=== PATIENT | male | born 1965 | race Caucasian/White ===

== ENCOUNTER 2019-05-07 08:06 | Inpatient (IN) | payer MEDICAID ==
[~2019-05-07] VITALS: Ht 177.8 cm; Wt 100.1 kg
[~2019-05-07 08:06] MED LIST: AMLO10TA4 PO; AMLO2.5T2 PO; ENAL2.5T32 PO; HYDR12.517 PO; LISI-170 PO; METO-282 PO; METO-93 PO; OMEP20CA9 PO; SIMV5TAB PO; TOPI25TA52 PO; TRAZ-137 PO
--- NOTE | 2019-05-07 08:18 | NUR ---
BIB [facility] AFTER PT WAS FOUND DOWN BY [employer] SLEEPING. +ETOH 5 HOURS AGO. PT HAD C/O CP, SOB, FEELING COLD, WEAKNESS, AND BLE PAIN DUE TO THE COLD. VS [employer] BP 170/60, 94% RA, HR 110. EKG ATTEMPTED. PT SHAKING EXCESSIVELY UNABLE TO GET PROPER EKG. PER ERP DR. YE WATSONAY TO WAIT UNTIL PT REWARMED TO PERFORM EKG. WARMING MEASURES IN PLACE. MONITORS APPLIED.
[2019-05-07] MEDS ORDERED: SODIUM CHLORIDE FLUSH 10ML SYR IVF ONE (08:30)
[2019-05-07] MEDS ORDERED: PLEASE ENTER HEIGHT AND WEIGHT MC SCH (08:30)
[2019-05-07 08:43] LABS: BASOPHILS # (AUTO) 0.01 x10^3/uL (0-0.1); BASOPHILS % (AUTO) 0 % (0-1); EOSINOPHILS # (AUTO) 0.03 x10^3/uL (0-0.4); EOSINOPHILS % (AUTO) 0 % (1-7); LYMPHOCYTES # (AUTO) 1.36 x10^3/uL (1-3.4); LYMPHOCYTES % (AUTO) 17 % (22-44); MD NO; MEAN CORPUSCULAR HEMOGLOBIN 30.9 pg (27.5-34.5); MEAN CORPUSCULAR HGB CONC 33.6 g/dL (33.2-36.2); MEAN CORPUSCULAR VOLUME 92.1 fL (81-97); MEAN PLATELET VOLUME 8.5 fL (7.4-10.4); MONOCYTES # (AUTO) 0.47 x10^3/uL (0.2-0.8); MONOCYTES % (AUTO) 6 % (2-9); NEUTROPHILS # (AUTO) 6.09 x10^3/uL (1.8-6.8); NEUTROPHILS % (AUTO) 77 % (42-75); PLATELET COUNT 156 x10^3/uL (130-400); RED CELL DISTRIBUTION WIDTH 14.5 % (9.4-14.8)
[2019-05-07 08:50] LABS: ALANINE AMINOTRANSFERASE 187 U/L (12-78); ALBUMIN 4.1 g/dL (3.4-5.0); ANION GAP 21 mmol/L (5-15); CHLORIDE 101 mmol/L (98-107); CREATININE 0.83 mg/dL (0.7-1.3)
--- NOTE | 2019-05-07 08:54 | NUR ---
REPORT GIVEN TO YONI ALVAREZ.
[2019-05-07 08:55] LABS: ALKALINE PHOSPHATASE 69 U/L (45-117); BILIRUBIN,TOTAL 0.7 mg/dL (0.2-1.0); TOTAL PROTEIN 7.9 g/dL (6.4-8.2); TROPONIN I < 0.015 ng/mL (0.000-0.045)
--- NOTE | 2019-05-07 08:55 | NUR ---
REPORT FROM GAGANDEEP
--- NOTE | 2019-05-07 09:47 | NUR ---
PT RESTING ON [employer] W WARMER. PT NO LONGER SHIVERING. ORAL TEMP 97.5. 2 L O2 APPLIED WHILE PT SLEEPING. RA 02 <90% SLEEPING
--- NOTE | 2019-05-07 10:33 | NUR ---
ETOH 0.415 BY LAB. AWARE
--- NOTE | 2019-05-07 10:34 | NUR ---
GIVEN WARM BLANKET AND BREAKFAST TRAY
--- NOTE | 2019-05-07 11:14 | NUR ---
REPORT TO [facility]
[2019-05-07 11:42] VITALS: BP 122/65
[2019-05-07] MEDS ORDERED: LORazepam 2 MG/ML, 1ML IV PRN ×3 (12:30)
[2019-05-07] MEDS: NICOTINE 14MG/24 HR PATCH.TD24 TD SCH (12:30)
[2019-05-07] MEDS ORDERED: hydrALAzine 20 MG/ML, 1ML IVPush PRN (12:30)
[2019-05-07] MEDS ORDERED: LORazepam 1MG TABLET PO PRN ×2 (12:30)
[2019-05-07] MEDS ORDERED: KETOROLAC 30 MG/1 ML IV PRN (12:30)
[2019-05-07] MEDS ORDERED: NS + 20MEQ KCL 1,000 ML IV SCH (12:37)
[2019-05-07] MEDS ORDERED: FOLIC ACID 1 MG TABLET PO ONE (12:43)
[2019-05-07] MEDS ORDERED: THIAMINE 200 MG in DEXTROSE 5% 50 ML IVPB ONE (12:44)
[2019-05-07] MEDS: ONDANSETRON 2MG/ML, 2ML IVPush PRN ×2 (12:47→21:01)
[2019-05-07] MEDS: LORazepam 2 MG/ML, 1ML IV PRN ×3 (13:07→23:04)
[2019-05-07 13:31] LABS: ACETONE, SERUM Trace (10mg/dL) mg/dL (Negative)
[2019-05-07] MEDS: ENOXAPARIN 40 MG/0.4 ML SQ SCH (13:56)
[2019-05-07] MEDS: PROMETHAZINE 25 MG/ML, 1ML IM PRN (16:06)
[2019-05-07 16:43] LABS: ACETONE, URINE Large (80mg/dL) (Negative)
[2019-05-07 16:50] LABS: AMPHETAMINE SCREEN, URINE Negative (Negative); BARBITURATE SCREEN, URINE Negative (Negative); BENZODIAZEPINE SCREEN, URINE Negative (Negative); CANNABINOID SCREEN, URINE Negative (Negative); COCAINE SCREEN, URINE Negative (Negative); METHADONE SCREEN, URINE Negative (Negative); OPIATE SCREEN, URINE Negative (Negative)
[2019-05-07] MEDS ORDERED: LACTATED RINGERS 1,000 ML IVBOLUS ONE (17:00)
[2019-05-07 17:40] VITALS: BP 123/66
[2019-05-07 18:07] VITALS: BP 122/65
[2019-05-07 19:51] VITALS: BP 126/81
[2019-05-07] MEDS: TRAZODONE 50MG TABLET PO SCH (21:01)
[2019-05-07] MEDS: LISINOPRIL 20 MG TABLET PO SCH (21:01)
[2019-05-08 02:16] VITALS: BP 115/72
[2019-05-08 05:20] VITALS: BP 126/63
[2019-05-08] MEDS: METOPROLOL SUCCINATE 50 MG TAB.ER.24H PO SCH (05:21)
[2019-05-08] MEDS: PROMETHAZINE 25 MG/ML, 1ML IM PRN (05:32)
[2019-05-08 05:38] LABS: ALBUMIN 3.1 g/dL (3.4-5.0); ANION GAP 11 mmol/L (5-15); CALCIUM 7.2 mg/dL (8.5-10.1); CHLORIDE 106 mmol/L (98-107)
[2019-05-08 05:50] LABS: ALANINE AMINOTRANSFERASE 128 U/L (12-78); ALKALINE PHOSPHATASE 49 U/L (45-117); BILIRUBIN,TOTAL 1.3 mg/dL (0.2-1.0); CREATININE 0.71 mg/dL (0.7-1.3); TOTAL PROTEIN 5.6 g/dL (6.4-8.2)
[2019-05-08 05:58] LABS: MEAN CORPUSCULAR HEMOGLOBIN 31.2 pg (27.5-34.5); MEAN CORPUSCULAR VOLUME 91.9 fL (81-97); RED BLOOD COUNT 4.06 x10^6/uL (4.38-5.82); RED CELL DISTRIBUTION WIDTH 14.4 % (9.4-14.8)
[2019-05-08 06:00] LABS: MEAN PLATELET VOLUME 9.1 fL (7.4-10.4); PLATELET COUNT 94 x10^3/uL (130-400)
[2019-05-08 06:01] LABS: BASOPHILS # (AUTO) 0.01 x10^3/uL (0-0.1); BASOPHILS % (AUTO) 0 % (0-1); EOSINOPHILS # (AUTO) 0.12 x10^3/uL (0-0.4); EOSINOPHILS % (AUTO) 2 % (1-7); LYMPHOCYTES # (AUTO) 1.36 x10^3/uL (1-3.4); LYMPHOCYTES % (AUTO) 24 % (22-44); MD SCAN; MONOCYTES # (AUTO) 0.33 x10^3/uL (0.2-0.8); MONOCYTES % (AUTO) 6 % (2-9); NEUTROPHILS # (AUTO) 3.82 x10^3/uL (1.8-6.8); NEUTROPHILS % (AUTO) 68 % (42-75)
[2019-05-08 06:47] VITALS: BP 121/67
[2019-05-08] MEDS: ONDANSETRON 2MG/ML, 2ML IVPush PRN (08:16)
[2019-05-08] MEDS: PANTOPROZOLE 40MG TABLET PO SCH (08:23)
[2019-05-08] MEDS: TOPIRAMATE 25 MG TABLET PO SCH (08:25)
[2019-05-08] MEDS: LORazepam 0.5MG TABLET PO PRN ×2 (08:25→15:25)
[2019-05-08] MEDS: LISINOPRIL 20 MG TABLET PO SCH ×2 (08:26→19:46)
[2019-05-08] MEDS ORDERED: POTASSIUM PHOSPHATE 44 MEQ in SODIUM CHLORIDE 0.9% 500 ML IV ONE (10:00)
[2019-05-08] MEDS ORDERED: MAGNESIUM SULFATE PMX 2GM/50ML 50 ML IV ONE (10:00)
[2019-05-08] MEDS: ONDANSETRON ODT 4 MG PO PRN ×2 (11:57→19:46)
[2019-05-08 12:13] VITALS: BP 134/77
[2019-05-08] MEDS ORDERED: NS + 20MEQ KCL 1,000 ML IV SCH (12:37)
[2019-05-08] MEDS: ENOXAPARIN 40 MG/0.4 ML SQ SCH (15:19)
[2019-05-08] MEDS: NICOTINE 14MG/24 HR PATCH.TD24 TD SCH (15:23)
[2019-05-08] MEDS: MULTIVITAMIN 1 TABLET PO SCH (17:22)
[2019-05-08] MEDS: FOLIC ACID 1 MG TABLET PO SCH (17:23)
[2019-05-08] MEDS: THIAMINE 100MG TABLET PO SCH (17:23)
[2019-05-08 19:43] VITALS: BP 127/73
[2019-05-08] MEDS: TRAZODONE 50MG TABLET PO SCH (19:46)
[2019-05-08] MEDS: LORazepam 2 MG/ML, 1ML IV PRN (19:56)
[2019-05-08] MEDS: D5%-0.9% NACL 1,000 ML IV SCH (19:57)
[2019-05-09 00:23] VITALS: BP 130/76
[2019-05-09] MEDS: morphine SULFATE 10 MG/ML, 1ML IVPush PRN ×2 (00:36→01:15)
[2019-05-09] MEDS: D5%-0.9% NACL 1,000 ML IV SCH (03:36)
[2019-05-09] MEDS: LORazepam 1MG TABLET PO PRN ×4 (04:05→20:07)
[2019-05-09] MEDS: PROMETHAZINE 25 MG/ML, 1ML IM PRN (04:05)
[2019-05-09 05:11] VITALS: BP 123/76
[2019-05-09] MEDS: METOPROLOL SUCCINATE 50 MG TAB.ER.24H PO SCH (05:12)
[2019-05-09 05:46] LABS: MEAN CORPUSCULAR HEMOGLOBIN 31.3 pg (27.5-34.5); MEAN CORPUSCULAR HGB CONC 33.5 g/dL (33.2-36.2); MEAN CORPUSCULAR VOLUME 93.7 fL (81-97); RED BLOOD COUNT 3.92 x10^6/uL (4.38-5.82); RED CELL DISTRIBUTION WIDTH 14.1 % (9.4-14.8)
[2019-05-09 05:47] LABS: ALANINE AMINOTRANSFERASE 117 U/L (12-78); ALBUMIN 2.8 g/dL (3.4-5.0); ANION GAP 6 mmol/L (5-15); CALCIUM 7.3 mg/dL (8.5-10.1); CHLORIDE 106 mmol/L (98-107); CREATININE 0.65 mg/dL (0.7-1.3)
[2019-05-09 05:49] LABS: ALKALINE PHOSPHATASE 52 U/L (45-117); BILIRUBIN,TOTAL 1.2 mg/dL (0.2-1.0); TOTAL PROTEIN 5.3 g/dL (6.4-8.2)
[2019-05-09 06:13] LABS: BASOPHILS # (AUTO) 0.01 x10^3/uL (0-0.1); BASOPHILS % (AUTO) 0 % (0-1); EOSINOPHILS # (AUTO) 0.23 x10^3/uL (0-0.4); EOSINOPHILS % (AUTO) 5 % (1-7); LYMPHOCYTES # (AUTO) 1.33 x10^3/uL (1-3.4); LYMPHOCYTES % (AUTO) 30 % (22-44); MD SCAN; MEAN PLATELET VOLUME 9.8 fL (7.4-10.4); MONOCYTES # (AUTO) 0.31 x10^3/uL (0.2-0.8); MONOCYTES % (AUTO) 7 % (2-9); NEUTROPHILS # (AUTO) 2.53 x10^3/uL (1.8-6.8); NEUTROPHILS % (AUTO) 57 % (42-75); PLATELET COUNT 78 x10^3/uL (130-400)
[2019-05-09 06:57] VITALS: BP 130/82
[2019-05-09] MEDS: ONDANSETRON ODT 4 MG PO PRN (08:01)
[2019-05-09] MEDS: PANTOPROZOLE 40MG TABLET PO SCH (08:01)
[2019-05-09] MEDS: MULTIVITAMIN 1 TABLET PO SCH (09:18)
[2019-05-09] MEDS: TOPIRAMATE 25 MG TABLET PO SCH (09:18)
[2019-05-09] MEDS: THIAMINE 100MG TABLET PO SCH (09:18)
[2019-05-09] MEDS: LISINOPRIL 20 MG TABLET PO SCH ×2 (09:18→20:08)
[2019-05-09] MEDS: FOLIC ACID 1 MG TABLET PO SCH (09:18)
[2019-05-09] MEDS ORDERED: POTASSIUM PHOSPHATE 44 MEQ in SODIUM CHLORIDE 0.9% 500 ML IV ONE (09:30)
[2019-05-09 12:17] VITALS: BP 133/82
[2019-05-09] MEDS: NICOTINE 14MG/24 HR PATCH.TD24 TD SCH (14:24)
[2019-05-09] MEDS: ENOXAPARIN 40 MG/0.4 ML SQ SCH (14:24)
[2019-05-09 19:28] VITALS: BP 117/78
[2019-05-09] MEDS: TRAZODONE 50MG TABLET PO SCH (20:07)
[2019-05-10 00:18] VITALS: BP 134/86
[2019-05-10] MEDS: LORazepam 1MG TABLET PO PRN ×5 (04:16→21:11)
[2019-05-10 04:36] LABS: ALANINE AMINOTRANSFERASE 124 U/L (12-78); ALBUMIN 2.7 g/dL (3.4-5.0); ANION GAP 7 mmol/L (5-15); CALCIUM 7.9 mg/dL (8.5-10.1); CHLORIDE 107 mmol/L (98-107); CREATININE 0.68 mg/dL (0.7-1.3)
[2019-05-10 04:38] LABS: ALKALINE PHOSPHATASE 57 U/L (45-117); BILIRUBIN,TOTAL 0.8 mg/dL (0.2-1.0); TOTAL PROTEIN 5.5 g/dL (6.4-8.2)
[2019-05-10 05:27] VITALS: BP 136/87
[2019-05-10] MEDS: METOPROLOL SUCCINATE 50 MG TAB.ER.24H PO SCH (05:33)
[2019-05-10 06:52] VITALS: BP 144/82
[2019-05-10] MEDS: PANTOPROZOLE 40MG TABLET PO SCH (08:31)
[2019-05-10] MEDS: TOPIRAMATE 25 MG TABLET PO SCH (08:32)
[2019-05-10] MEDS: MULTIVITAMIN 1 TABLET PO SCH (08:33)
[2019-05-10] MEDS: THIAMINE 100MG TABLET PO SCH (08:35)
[2019-05-10] MEDS: FOLIC ACID 1 MG TABLET PO SCH (08:35)
[2019-05-10] MEDS: LISINOPRIL 20 MG TABLET PO SCH ×2 (08:36→21:10)
[2019-05-10 12:21] VITALS: BP 128/77
[2019-05-10] MEDS: ENOXAPARIN 40 MG/0.4 ML SQ SCH (13:07)
[2019-05-10] MEDS: NICOTINE 14MG/24 HR PATCH.TD24 TD SCH (13:07)
[2019-05-10 20:13] VITALS: BP 119/81
[2019-05-10] MEDS: TRAZODONE 50MG TABLET PO SCH (21:10)
[2019-05-11 00:30] VITALS: BP 119/78
[2019-05-11] MEDS: LORazepam 1MG TABLET PO PRN (03:11)
[2019-05-11 06:48] VITALS: BP 117/77
[2019-05-11] MEDS: METOPROLOL SUCCINATE 50 MG TAB.ER.24H PO SCH (07:36)
[2019-05-11] MEDS: LACTOBACILLUS CHEW TABLET PO SCH ×3 (09:14→20:22)
[2019-05-11] MEDS: LISINOPRIL 20 MG TABLET PO SCH ×2 (09:14→20:22)
[2019-05-11] MEDS: FOLIC ACID 1 MG TABLET PO SCH (09:14)
[2019-05-11] MEDS: MULTIVITAMIN 1 TABLET PO SCH (09:14)
[2019-05-11] MEDS: THIAMINE 100MG TABLET PO SCH (09:14)
[2019-05-11] MEDS: TOPIRAMATE 25 MG TABLET PO SCH (09:14)
[2019-05-11 12:22] VITALS: BP 132/85
[2019-05-11] MEDS: ENOXAPARIN 40 MG/0.4 ML SQ SCH (12:47)
[2019-05-11] MEDS ORDERED: ACID1TAB7 PO (12:57)
[2019-05-11] MEDS ORDERED: THIA100T67 PO (12:57)
[2019-05-11] MEDS ORDERED: MULT1TAB60 PO (12:57)
[2019-05-11] MEDS ORDERED: POLYETHYLENE GLYCOL 17 GM PACKET PO ONE (13:30)
[2019-05-11 19:32] VITALS: BP 140/88
[2019-05-11] MEDS: TRAZODONE 50MG TABLET PO SCH (20:21)
[2019-05-11] MEDS: PROMETHAZINE 25 MG/ML, 1ML IM PRN (20:22)
[2019-05-11] MEDS ORDERED: SENNA/DOCUSATE TABLET PO SCH (21:00)
[2019-05-12 01:50] VITALS: BP 125/82
[2019-05-12] MEDS: METOPROLOL SUCCINATE 50 MG TAB.ER.24H PO SCH (05:29)
[2019-05-12 05:47] LABS: CHLORIDE 107 mmol/L (98-107)
[2019-05-12 05:52] LABS: BASOPHILS # (AUTO) 0.02 x10^3/uL (0-0.1); BASOPHILS % (AUTO) 0 % (0-1); EOSINOPHILS # (AUTO) 0.25 x10^3/uL (0-0.4); EOSINOPHILS % (AUTO) 5 % (1-7); LYMPHOCYTES # (AUTO) 1.75 x10^3/uL (1-3.4); LYMPHOCYTES % (AUTO) 33 % (22-44); MD NO; MEAN CORPUSCULAR HEMOGLOBIN 30.8 pg (27.5-34.5); MEAN CORPUSCULAR HGB CONC 32.9 g/dL (33.2-36.2); MEAN CORPUSCULAR VOLUME 93.4 fL (81-97); MEAN PLATELET VOLUME 8.3 fL (7.4-10.4); MONOCYTES # (AUTO) 0.65 x10^3/uL (0.2-0.8); MONOCYTES % (AUTO) 12 % (2-9); NEUTROPHILS # (AUTO) 2.71 x10^3/uL (1.8-6.8); NEUTROPHILS % (AUTO) 50 % (42-75); PLATELET COUNT 149 x10^3/uL (130-400); RED BLOOD COUNT 4.26 x10^6/uL (4.38-5.82)
[2019-05-12 05:58] LABS: ALANINE AMINOTRANSFERASE 269 U/L (12-78); ALBUMIN 2.9 g/dL (3.4-5.0); ALKALINE PHOSPHATASE 67 U/L (45-117); ANION GAP 8 mmol/L (5-15); BILIRUBIN,TOTAL 0.3 mg/dL (0.2-1.0); CALCIUM 8.5 mg/dL (8.5-10.1); CREATININE 0.64 mg/dL (0.7-1.3); TOTAL PROTEIN 6.4 g/dL (6.4-8.2)
[2019-05-12 06:56] VITALS: BP 122/72
[2019-05-12] MEDS: THIAMINE 100MG TABLET PO SCH (08:39)
[2019-05-12] MEDS: TOPIRAMATE 25 MG TABLET PO SCH (08:39)
[2019-05-12] MEDS: LISINOPRIL 20 MG TABLET PO SCH (08:39)
[2019-05-12] MEDS: MULTIVITAMIN 1 TABLET PO SCH (08:39)
[2019-05-12] MEDS: FOLIC ACID 1 MG TABLET PO SCH (08:39)
[2019-05-12] MEDS: LACTOBACILLUS CHEW TABLET PO SCH (08:39)
[2019-05-12 12:43] VITALS: BP 127/72
[2019-05-12] MEDS: ENOXAPARIN 40 MG/0.4 ML SQ SCH (13:19)
[2019-05-12] MEDS ORDERED: FLU VACC QS2019-20 36MOS UP/PF 0.5 ML IM-VACC ONE (14:00)
[2019-05-12] MEDS ORDERED: BISACODYL 10 MG SUPP PR PRN (14:00)
== END 2019-05-12 15:59 | disposition home or self-care (01) | DRG 433 ==
LOC: ED 08:12 → 4WST 10:31
PROVIDERS: ADMIT Internal Medicine; ATTEND Internal Medicine
DX: K70.10 Alcoholic hepatitis without ascites (principal); D68.69 Other thrombophilia; E87.2 Acidosis; D64.9 Anemia, unspecified; D69.6 Thrombocytopenia, unspecified; E66.9 Obesity, unspecified; E78.00 Pure hypercholesterolemia, unspecified; E78.5 Hyperlipidemia, unspecified; E83.42 Hypomagnesemia; E87.6 Hypokalemia; F10.20 Alcohol dependence, uncomplicated; G47.00 Insomnia, unspecified; I48.91 Unspecified atrial fibrillation; I10 Essential (primary) hypertension; K21.9 Gastro-esophageal reflux disease without esophagitis; T68.XXXA Hypothermia, initial encounter; F41.9 Anxiety disorder, unspecified; T73.0XXA Starvation, initial encounter; Y90.8 Blood alcohol level of 240 mg/100 ml or more; Z59.0 Homelessness; Z80.9 Family history of malignant neoplasm, unspecified; Z83.3 Family history of diabetes mellitus; X31.XXXA Exposure to excessive natural cold, initial encounter; Z79.899 Other long term (current) drug therapy; Z23 Encounter for immunization; Z68.31 Body mass index [BMI] 31.0-31.9, adult
CPT/HCPCS: 36415; 74018; J7042; 71045; 76700; 80053; 80074; 80307; 82009; 82010; 82330; 83605; 83690; 83735; 83880; 84100; 84443; 84484; 85025; 90686; 93005; G0378; J1650; J1885; J2405; J2550; J3411; J3480; Q0162; J2060; J2270; J3475; J7040; J7120

== ENCOUNTER 2020-02-02 10:06 | Emergency (ER) | payer MEDICAID ==
[~2020-02-02] VITALS: Ht 177.8 cm; Wt 92.0 kg
[~2020-02-02 10:06] MED LIST changes: +ACID1TAB7 PO; +MULT-449 PO; +THIA100T67 PO; -TRAZ-137 PO; +TRAZ-175 PO
--- NOTE | 2020-02-02 10:33 | NUR ---
PT PRESENTS TO ED WITH LEFT SIDED RIB AND BACK PAIN AFTER FALLING DOWN A HILL SUNDAY. PT REPORTS TENDER TO PALPATION. EVIDENT BRUISING DOWN RT SIDE OF BACK. PT REPORTS BEING SEEN AT [facility] ON SUNDAY. WISHES TO BE RE-EVALUATED.
--- NOTE | 2020-02-02 11:20 | NUR ---
TASK RN ASSISTED WITH TELEVISION AND REMOTE USE. NAD NOTED IN PT AT THIS TIME. RESPIRATIONS EVEN AND UNLABORED ON RA.
[2020-02-02 12:35] LABS: BASOPHILS # (AUTO) 0.01 x10^3/uL (0-0.1); BASOPHILS % (AUTO) 0 % (0-1); EOSINOPHILS # (AUTO) 0.08 x10^3/uL (0-0.4); EOSINOPHILS % (AUTO) 2 % (1-7); LYMPHOCYTES # (AUTO) 0.58 x10^3/uL (1-3.4); LYMPHOCYTES % (AUTO) 12 % (22-44); MD NO; MEAN CORPUSCULAR HEMOGLOBIN 30.1 pg (27.5-34.5); MEAN CORPUSCULAR HGB CONC 33.4 g/dL (33.2-36.2); MEAN PLATELET VOLUME 7.4 fL (7.4-10.4); MONOCYTES # (AUTO) 0.53 x10^3/uL (0.2-0.8); MONOCYTES % (AUTO) 11 % (2-9); NEUTROPHILS % (AUTO) 76 % (42-75); PLATELET COUNT 250 x10^3/uL (130-400); RED BLOOD COUNT 4.54 x10^6/uL (4.38-5.82); RED CELL DISTRIBUTION WIDTH 15.7 % (9.4-14.8)
--- NOTE | 2020-02-02 12:36 | NUR ---
PT RECLINED IN BED AWAITING LAB RESULTS. TELEVISION ON. SIDE RAILS UP.
[2020-02-02 12:39] VITALS: BP 147/86
[2020-02-02 12:47] LABS: ALANINE AMINOTRANSFERASE 90 U/L (12-78); ALBUMIN 2.8 g/dL (3.4-5.0); ANION GAP 10 mmol/L (5-15); CALCIUM 7.8 mg/dL (8.5-10.1); CHLORIDE 101 mmol/L (98-107); CREATININE 0.58 mg/dL (0.7-1.3)
[2020-02-02] MEDS ORDERED: ONDANSETRON ODT 4 MG ONE (12:48)
[2020-02-02 12:49] LABS: ALKALINE PHOSPHATASE 89 U/L (45-117); BILIRUBIN,TOTAL 0.8 mg/dL (0.2-1.0); TOTAL PROTEIN 6.1 g/dL (6.4-8.2)
[2020-02-02] MEDS ORDERED: ONDANSETRON ODT 4 MG PO ONE (13:00)
--- NOTE | 2020-02-02 13:06 | NUR ---
INCENTIVE SPIROMETER USE EDUCATION PROVIDED, PLAN FOR DC. AWAITING CHART FROM .
== END 2020-02-02 13:33 | disposition home or self-care (01) ==
LOC: ED 12:56
DX: S22.42XA Multiple fractures of ribs, left side, initial encounter for closed fracture (principal); R94.31 Abnormal electrocardiogram [ECG] [EKG]; K76.0 Fatty (change of) liver, not elsewhere classified; I10 Essential (primary) hypertension; I48.91 Unspecified atrial fibrillation; Z87.891 Personal history of nicotine dependence; X58.XXXA Exposure to other specified factors, initial encounter; Y93.89 Activity, other specified; Y92.89 Other specified places as the place of occurrence of the external cause; Y99.8 Other external cause status
CPT/HCPCS: 36415; 71250; 80053; 85025; 93005; 99285; Q0162